=== PATIENT | female | born 1965 | race Two or more races ===

== ENCOUNTER 2018-08-09 19:41 | Emergency (ER) | payer MEDICAID, OTHER ==
[~2018-08-09] VITALS: Ht 157.5 cm; Wt 81.6 kg
[~2018-08-09 19:41] MED LIST: ALBU18 IN; AMIT PO; BUTA-91 OR; CETI1TAB36 PO; CIPR-173 PO; GABA-339; GABA-339 PO; HYDR-4683 PO; MELO-41 PO; METH-562 PO; NOR10T PO; OMEP20CA74 OR; PANT1INJ3 PO; TRAM50TA2 PO; ZOLP-158 PO
[2018-08-09 19:45] VITALS: BP 145/63
== END 2018-08-09 23:00 | disposition left against medical advice (07) ==
LOC: EDBD 19:41 → ER 19:47
DX: R51 Headache (principal); Z53.21 Procedure and treatment not carried out due to patient leaving prior to being seen by health care provider
CPT/HCPCS: 70450

== ENCOUNTER 2022-05-17 19:26 | Inpatient (IN) | payer OTHER ==
[~2022-05-17] VITALS: Ht 154.9 cm; Wt 75.8 kg
[~2022-05-17 19:26] MED LIST changes: -AMIT PO; +AMIT10TA8 PO; -GABA-339; -HYDR-4683 PO; +HYDR-4833 PO; -MELO-41 PO; +MELO7.5T9 PO; -ZOLP-158 PO; +ZOLP5TAB PO
[2022-05-17 20:38] LABS: Basophils # (auto) 0 10 ^3/uL (0-0.2); Basophils % (auto) 0.5 % (0.0-2.0); Eosinophils # (auto) 0.1 10 ^3/uL (0-0.8); Eosinophils % (auto) 1.1 % (0.0-7.0); Hematocrit 42.2 % (36.0-46.0); Hemoglobin 14.3 g/dL (12.2-16.2); Lymphocytes # (auto) 3.4 10 ^3/uL (0.4-5.4); Lymphocytes % (auto) 35.6 % (10.0-50.0); Mean Corpuscular Volume 85.2 fL (80.0-100.0); Monocytes % (auto) 10.3 % (0.0-12.0); Neutrophils # (auto) 5.1 10 ^3/uL (1.6-8.6); Neutrophils % (auto) 52.5 % (37.0-80.0); Red Blood Cells 4.95 10^6/uL (4.0-5.20); Red Cell Distribution Width 14.4 % (11.8-14.3); White Blood Cell 9.6 10^3/uL (4.4-10.8)
[2022-05-17 20:56] LABS: Albumin 3.8 g/dL (3.4-5.0)
[2022-05-17 20:59] LABS: BUN/Creatinine Ratio 15.7; Bilirubin, Total 0.2 mg/dL (0.2-1.0)
[2022-05-18] MEDS ORDERED: DEXTROSE (50%) 50ML SYRG IV PRN (04:15)
[2022-05-18] MEDS ORDERED: MORPHINE SULFATE INJ 2 MG/ml SYRG IV PRN (04:15)
[2022-05-18] MEDS ORDERED: ONDANSETRON HCL 4 MG/2 ML VIAL IV PRN (04:15)
[2022-05-18] MEDS ORDERED: NITROGLYCERIN 0.4 MG SL TAB SL PRN (04:15)
[2022-05-18] MEDS: InsuLIN REG 1unit/0.01ml Soln (100units/ml) SC SCH ×4 (06:38→22:07)
[2022-05-18] MEDS: ACCU-CHEK COMFORT CURVE STRIP VI SCH ×4 (06:38→22:09)
[2022-05-18] MEDS: LEVOTHYROXINE SODIUM 100 MCG TAB PO SCH (06:46)
[2022-05-18] MEDS: busPIRone HCL 10 MG TAB PO SCH ×2 (09:26→22:11)
[2022-05-18] MEDS: GABAPENTIN 300 MG CAP PO SCH ×2 (09:26→22:11)
[2022-05-18] MEDS: PANTOPRAZOLE 40 MG TAB PO SCH (09:26)
[2022-05-18] MEDS: FLUoxetine HCL 20 MG CAP PO SCH (09:26)
[2022-05-18] MEDS: ENOXAPARIN SOD 40 MG/0.4 ML SYRINGE SC SCH (09:27)
[2022-05-18] MEDS: METOPROLOL TARTRATE 25 MG TAB PO SCH ×2 (09:27→22:11)
[2022-05-18] MEDS: MEMANTINE HCL 5 MG TAB PO SCH ×2 (09:27→22:10)
[2022-05-18] MEDS: ASPirin 81 mg TAB PO SCH (09:31)
[2022-05-18 10:04] LABS: Urine Bacteria FEW /hpf (None Seen); Urine Blood Negative /uL (Negative); Urine Specific Gravity 1.016 (1.001-1.035); Urine WBC 5 /hpf (0 - 5)
[2022-05-18] MEDS ORDERED: AMIT1TAB41 PO (19:55)
[2022-05-18] MEDS ORDERED: CYCL-611 PO (19:55)
[2022-05-18] MEDS ORDERED: FLUO20CA90 PO (19:55)
[2022-05-18] MEDS ORDERED: METF-869 PO (19:55)
[2022-05-18] MEDS ORDERED: OMEP20TA69 PO (19:55)
[2022-05-18] MEDS ORDERED: BUSP10TA90 PO (19:55)
[2022-05-18] MEDS ORDERED: MEMA1TAB5 PO (19:55)
[2022-05-18] MEDS ORDERED: ATOR20TA50 PO (19:55)
[2022-05-18] MEDS ORDERED: ARIP1TAB PO (19:55)
[2022-05-18] MEDS ORDERED: LEVO100T8 PO (20:04)
[2022-05-18] MEDS ORDERED: TOPI100T68 PO (20:04)
[2022-05-18 21:30] VITALS: BP 109/66
[2022-05-18] MEDS: ATORVASTATIN 20 MG TAB PO SCH (22:12)
[2022-05-19 04:32] VITALS: BP 109/64
[2022-05-19 05:27] LABS: Basophils # (auto) 0 10 ^3/uL (0-0.2); Basophils % (auto) 0.5 % (0.0-2.0); Eosinophils # (auto) 0.1 10 ^3/uL (0-0.8); Eosinophils % (auto) 1.7 % (0.0-7.0); Hematocrit 37.8 % (36.0-46.0); Hemoglobin 13.2 g/dL (12.2-16.2); Lymphocytes # (auto) 3.3 10 ^3/uL (0.4-5.4); Lymphocytes % (auto) 41.7 % (10.0-50.0); Mean Corpuscular Hemoglobin 29.8 pg (28.0-32.0); Mean Corpuscular Hgb Conc. 34.8 g/dL (32.0-36.0); Mean Corpuscular Volume 85.8 fL (80.0-100.0); Monocytes # (auto) 0.9 10 ^3/uL (0-1.3); Monocytes % (auto) 11.4 % (0.0-12.0); Neutrophils # (auto) 3.5 10 ^3/uL (1.6-8.6); Neutrophils % (auto) 44.7 % (37.0-80.0); Red Blood Cells 4.41 10^6/uL (4.0-5.20); Red Cell Distribution Width 14.4 % (11.8-14.3); White Blood Cell 7.9 10^3/uL (4.4-10.8)
[2022-05-19 05:40] LABS: BUN/Creatinine Ratio 24.2; Calcium 8.5 mg/dL (8.5-10.1)
[2022-05-19] MEDS: ACCU-CHEK COMFORT CURVE STRIP VI SCH ×4 (06:25→22:00)
[2022-05-19] MEDS: InsuLIN REG 1unit/0.01ml Soln (100units/ml) SC SCH ×4 (06:25→22:00)
[2022-05-19] MEDS: LEVOTHYROXINE SODIUM 100 MCG TAB PO SCH (06:25)
[2022-05-19 08:37] VITALS: BP 111/67
[2022-05-19] MEDS: ASPirin 81 mg TAB PO SCH (09:35)
[2022-05-19] MEDS: FLUoxetine HCL 20 MG CAP PO SCH (09:38)
[2022-05-19] MEDS: PANTOPRAZOLE 40 MG TAB PO SCH (09:38)
[2022-05-19] MEDS: MEMANTINE HCL 5 MG TAB PO SCH ×2 (09:38→22:36)
[2022-05-19] MEDS: GABAPENTIN 300 MG CAP PO SCH ×2 (09:39→22:37)
[2022-05-19] MEDS: busPIRone HCL 10 MG TAB PO SCH ×2 (09:39→22:37)
[2022-05-19] MEDS: METOPROLOL TARTRATE 25 MG TAB PO SCH ×2 (09:39→22:42)
[2022-05-19] MEDS: ENOXAPARIN SOD 40 MG/0.4 ML SYRINGE SC SCH (09:39)
[2022-05-19 12:36] VITALS: BP 110/62
[2022-05-19 12:59] VITALS: BP 110/62
[2022-05-19 17:28] VITALS: BP 123/72
[2022-05-19] MEDS: ATORVASTATIN 20 MG TAB PO SCH (22:37)
[2022-05-19 22:47] LABS: Prolactin 3.04 ng/mL (2.8-29.2)
[2022-05-19 22:49] LABS: Follicle Stimulating Hormone 43.14 IU/L (SEE BELOW)
[2022-05-19] MEDS: ACETAMINOPHEN 325 MG TAB PO PRN (22:49)
[2022-05-20 05:09] VITALS: BP 114/60
[2022-05-20] MEDS: ACCU-CHEK COMFORT CURVE STRIP VI SCH ×4 (06:30→21:20)
[2022-05-20] MEDS: InsuLIN REG 1unit/0.01ml Soln (100units/ml) SC SCH ×4 (06:30→21:20)
[2022-05-20] MEDS: LEVOTHYROXINE SODIUM 100 MCG TAB PO SCH (06:31)
[2022-05-20] MEDS ORDERED: ADENOSINE 57 MG in GIVE UN-DILUTED 0 ML IV ONE (08:15)
[2022-05-20 09:37] VITALS: BP 104/54
[2022-05-20] MEDS: METOPROLOL TARTRATE 25 MG TAB PO SCH ×2 (10:00→21:12)
[2022-05-20] MEDS: MEMANTINE HCL 5 MG TAB PO SCH ×2 (10:00→21:13)
[2022-05-20] MEDS: ASPirin 81 mg TAB PO SCH (10:00)
[2022-05-20] MEDS: PANTOPRAZOLE 40 MG TAB PO SCH (11:11)
[2022-05-20] MEDS: GABAPENTIN 300 MG CAP PO SCH ×2 (11:11→21:12)
[2022-05-20] MEDS: FLUoxetine HCL 20 MG CAP PO SCH (11:12)
[2022-05-20] MEDS: ENOXAPARIN SOD 40 MG/0.4 ML SYRINGE SC SCH (11:12)
[2022-05-20] MEDS: busPIRone HCL 10 MG TAB PO SCH ×2 (11:14→21:13)
[2022-05-20] MEDS: ACETAMINOPHEN 325 MG TAB PO PRN ×2 (11:59→18:23)
[2022-05-20 16:35] VITALS: BP 107/62
[2022-05-20] MEDS: ATORVASTATIN 20 MG TAB PO SCH (21:11)
[2022-05-20 22:00] VITALS: BP 115/63
[2022-05-21 05:00] VITALS: BP 109/68
[2022-05-21] MEDS: LEVOTHYROXINE SODIUM 100 MCG TAB PO SCH (06:16)
[2022-05-21] MEDS: InsuLIN REG 1unit/0.01ml Soln (100units/ml) SC SCH ×4 (06:16→21:53)
[2022-05-21] MEDS: ACCU-CHEK COMFORT CURVE STRIP VI SCH ×4 (06:17→21:53)
[2022-05-21 08:00] VITALS: BP 108/59
[2022-05-21] MEDS: GABAPENTIN 300 MG CAP PO SCH ×2 (09:10→21:52)
[2022-05-21] MEDS: MEMANTINE HCL 5 MG TAB PO SCH ×2 (09:11→21:52)
[2022-05-21] MEDS: ASPirin 81 mg TAB PO SCH (09:11)
[2022-05-21] MEDS: FLUoxetine HCL 20 MG CAP PO SCH (09:12)
[2022-05-21] MEDS: ENOXAPARIN SOD 40 MG/0.4 ML SYRINGE SC SCH (09:13)
[2022-05-21] MEDS: busPIRone HCL 10 MG TAB PO SCH ×2 (09:13→21:52)
[2022-05-21] MEDS: METOPROLOL TARTRATE 25 MG TAB PO SCH ×2 (09:13→21:52)
[2022-05-21] MEDS: PANTOPRAZOLE 40 MG TAB PO SCH (09:13)
[2022-05-21 12:00] VITALS: BP 109/68
[2022-05-21 16:00] VITALS: BP 104/68
[2022-05-21] MEDS: ATORVASTATIN 20 MG TAB PO SCH (21:52)
[2022-05-21 22:00] VITALS: BP 119/66
[2022-05-22 05:00] VITALS: BP 108/56
[2022-05-22] MEDS: LEVOTHYROXINE SODIUM 100 MCG TAB PO SCH (06:37)
[2022-05-22] MEDS: ACCU-CHEK COMFORT CURVE STRIP VI SCH ×2 (06:38→11:46)
[2022-05-22] MEDS: InsuLIN REG 1unit/0.01ml Soln (100units/ml) SC SCH ×2 (06:40→11:30)
[2022-05-22 09:00] VITALS: BP 109/57
[2022-05-22] MEDS: MEMANTINE HCL 5 MG TAB PO SCH (09:46)
[2022-05-22] MEDS: FLUoxetine HCL 20 MG CAP PO SCH (09:46)
[2022-05-22] MEDS: busPIRone HCL 10 MG TAB PO SCH (09:47)
[2022-05-22] MEDS: GABAPENTIN 300 MG CAP PO SCH (09:47)
[2022-05-22] MEDS: METOPROLOL TARTRATE 25 MG TAB PO SCH (09:47)
[2022-05-22] MEDS: ASPirin 81 mg TAB PO SCH (09:47)
[2022-05-22] MEDS: PANTOPRAZOLE 40 MG TAB PO SCH (09:47)
[2022-05-22] MEDS: ENOXAPARIN SOD 40 MG/0.4 ML SYRINGE SC SCH (09:48)
[2022-05-22 12:52] VITALS: BP 120/51
== END 2022-05-22 12:50 | disposition home or self-care (01) | DRG 47 ==
LOC: ER 19:26 → TELE 05-18 04:11 → TELE-WESTW 05-18 18:43
PROVIDERS: ADMIT Nurse Practitioner; ATTEND Family Medicine
DX: G45.9 Transient cerebral ischemic attack, unspecified (principal); E11.9 Type 2 diabetes mellitus without complications; F41.9 Anxiety disorder, unspecified; Z20.822 Contact with and (suspected) exposure to COVID-19; R07.89 Other chest pain; F41.1 Generalized anxiety disorder; I10 Essential (primary) hypertension; F32.A Depression, unspecified; J45.909 Unspecified asthma, uncomplicated; Z80.1 Family history of malignant neoplasm of trachea, bronchus and lung
CPT/HCPCS: 36415; 70450; 70551; 71045; 78452; 80048; 80053; 81001; 82533; 82672; 82962; 83001; 83880; 84146; 84484; 85025; 87426; 93005; 93017; 93306; 96372; G0378; J0153; J1815

== ENCOUNTER 2024-06-09 12:41 | Emergency (ER) | payer OTHER ==
[~2024-06-09] VITALS: Ht 152.4 cm; Wt 76.5 kg
[~2024-06-09 12:41] MED LIST changes: +AMIT-400 PO; +AMIT100T6 PO; -AMIT10TA8 PO; +ARIP20TA49 PO; +ATOR20TA50 PO; +BUSP10TA90 PO; +CYCL-611 PO; +FLUO-470 PO; +LEVO100T8 PO; +MEMA1TAB5 PO; +METF-869 PO; +OMEP20TA69 PO; +TOPI100T68 PO
--- NOTE | 2024-06-09 13:08 | ED.PDOC ---
History of Present Illness HPI Comments 59Y F with PMHx DM, HTN, HLD, thyroid disease, arthritis, anxiety, headaches and depression presents to ED for chief complaint headache [id number]. Pt states that headaches occur every 15-30days and are intermittent. Additional symptoms include nausea and neck and shoulder pain. Pt currently takes [place] for pain but only feels relief for a limited amount of time. No known drug allergies. neck and shoulder pain is better with massage Chief Complaint: Headache Time Seen by MD: 12:50 Primary Care Provider: UNK Reviewed Notes: Medications, Allergies Allergies: Coded Allergies: No Known Drug Allergy (Verified Allergy, Unknown, 03/31/17) Uncoded Allergies: NUTS (Adverse Reaction, Severe, 06/17/14) Home Meds Active Scripts Ciprofloxacin Hcl (Cipro) 500 Mg Tab, 500 MG PO BID for 5 Days Prov:ANGELITO TEJADA MD 04/03/17 Reported Medications Topiramate (Topiramate) 100 Mg Tab, 1 TAB PO HS 05/18/22 Levothyroxine Sodium (Levothyroxine Sodium) 100 Mcg Tab, 1 TAB PO QAM 05/18/22 Amitriptyline Hcl (Amitriptyline Hcl) 100 Mg Tab, 1 TAB PO DAILY 05/18/22 Aripiprazole (Aripiprazole) 20 Mg Tab, 1 TAB PO DAILY 05/18/22 Memantine Hydrochloride (Memantine HCl) 10 Mg Tab, 1 TAB PO BID 05/18/22 Omeprazole (Gnp Omeprazole) 20 Mg Tab, 40 MG PO DAILY 05/18/22 Atorvastatin Calcium (ATORVASTATIN CALCIUM) 20 Mg Tab, 1 TAB PO DAILY 05/18/22 Metformin Hydrochloride (Metformin Hydrochloride) 500 Mg Tab, 1 TAB PO BID 05/18/22 Fluoxetine HCl (Fluoxetine HCl) 20 Mg Cap, 1 CAP PO QAM 05/18/22 Buspirone Hcl (Buspirone Hcl) 10 Mg Tab, 2 TAB PO TID 05/18/22 Cyclobenzaprine HCl (Cyclobenzaprine Hydrochlo) 10 Mg Tab, 1 TAB PO BID 05/18/22 Albuterol Sulfate (Ventolin Hfa) Aer, 1 PUFF IN QIDP, AER 10/23/13 Cetirizine Hcl (ZYRTEC ALLERGY) 10 Mg Tab, 10 MG PO DAILY, TAB 10/23/13 Omeprazole (PRILOSEC) 20 Mg Cap, 20 MG OR DAILY, CAP 10/23/13 Zolpidem Tartrate (Ambien) 5 Mg Tab, 5 MG PO HSPRN PRN, TAB 10/23/13 Meloxicam (Mobic) 7.5 Mg Tab, 7.5 MG PO DAILY, TAB 10/23/13 Hydrocodone-Acetaminophen ([place] 10/325MG) 1 Tab Tb, 1 TAB PO Q6HPRN 10/23/13 Gabapentin (Gabapentin) 600 Mg Tab, 600 MG PO TID, TAB 10/23/13 Tramadol Hcl (Tramadol Hcl) 50 Mg Tab, 50 MG PO TID PRN for MODERATE PAIN, TAB 10/23/13 Methocarbamol (Robaxin) 500 Mg Tab, 500 MG PO TIDP PRN for FOR MUSCLE SPASM, TAB 10/23/13 Tryjgvrdhl-Lqesswtlspati-Bbwiv (Fioricet) Tab, 1 TAB OR DAILYPRN PRN for FOR HEADACHE, TAB 10/23/13 Amitriptyline Hcl (ELAVIL) 10 Mg Tb, 25 MG PO HS 10/23/13 Pantoprazole Sodium (PANTOPRAZOLE SODIUM) 40 Mg Inj, 20 MG PO BID, INJ 10/23/13 Hydrocodone-Acetaminophen ([place] 5/325MG) 1 Tab Tb, PO PRN 07/08/12 Gabapentin (Gabapentin) 600 Mg Tab, 300 MG PO BID 11/24/11 Information Source: Patient Mode of Arrival: Ambulatory Severity: Mild Timing: Months Duration: Intermittent Past Medical History PAST MEDICAL HISTORY: Anxiety, Arthritis, Asthma, Depression, DM, GERD, High Lipids, HTN, Thyroid Surgical History: Cholecystectomy, Thyroidectomy 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 CYANIDE CASE HARDENER History Family History Family History: No family hx of Cancer, No family hx of DM Social History Smoker: Non-Smoker Alcohol: Denies ETOH Use Drugs: Denies Drug Use Lives In: Home Constitutional: denies: chills, diaphoresis, fatigue, fever, malaise, sweats, weakness, others EENTM: denies: blurred vision, double vision, ear bleeding, ear discharge, ear drainage, ear pain, ear ringing, eye pain, eye redness, hearing loss, mouth pain, mouth swelling, nasal discharge, nose bleeding, nose congestion, nose pain, photophobia, tearing, throat pain, throat swelling, voice changes, others Respiratory: denies: cough, hemoptysis, orthopnea, SOB at rest, shortness of breath, SOB with excertion, stridor, wheezing, others Cardiovascular: denies: chest pain, dizzy spells, diaphoresis, Dyspnea on exertion, edema, irregular heart beat, left arm pain, lightheadedness, palpitations, PND, syncope, others Gastrointestinal: reports: nausea; denies: abdomen distended, abdominal pain, blood streaked bowels, constipated, diarrhea, dysphagia, difficulty swallowing, hematemesis, melena, poor appetite, poor fluid intake, rectal bleeding, rectal pain, vomiting, others Genitourinary: denies: abnormal vagina bleeding, burning, dyspareunia, dysuria, flank pain, frequency, hematuria, incontinence, pain, , vagina discharge, urgency, others Neurological: reports: headache; denies: dizziness, fainting, left sided numbness, left sided weakness, numbness, paresthesia, pre-existing deficit, right sided numbness, right sided weakness, seizure, speech problems, tingling, tremors, weakness, others Musculoskeletal: reports: neck pain; denies: back pain, gout, joint pain, joint swelling, muscle pain, muscle stiffness, others Integumetry: denies: bruises, change in color, change in hair/nails, dryness, laceration, lesions, lumps, rash, wounds, others Allergic/Immunocompromised: denies: Difficulty Healing, Frequent Infections, Hives, Itching, others Hematologic/Lymphatic: denies: anemia, blood clots, easy bleeding, easy bruising, swollen glands, others Endocrine: denies: excessive hunger, excessive sweating, excessive thirst, excessive urination, flushing, intolerance to cold, intolerance to heat, unexplained weight gain, unexplained weight loss, others Psychiatric: denies: anxiety, bipolar disorder, depression, hopeless, panic disorder, schizophrenia, sleepless, suicidal, others All Other Systems: Reviewed and Negative Physical Exam General Appearance: No Apparent Distress, Normal HEENT: Normal ENT Inspection, Pharynx Normal, TMs Normal Neck: Full Range of Motion, Non-Tender, Normal, Normal Inspection Respiratory: Chest Non-Tender, Lungs Clear, No Accessory Muscle Use, No Respiratory Distress, Normal Breath Sounds Cardiovascular: No Edema, No JVD, No Murmur, No Gallop, Normal Peripheral Pulses, Regular Rate/Rhythm Breast Exam: Deferred Gastrointestinal: No Organomegaly, Non Tender, No Pulsatile Mass, Normal Bowel Sounds, Soft Genitalia: Deferred Pelvic: Deferred Rectal: Deferred Extremities: No calf tenderness, Normal capillary refill, Normal inspection, Normal range of motion, Non-tender, No pedal edema Musculoskeletal : Location: Bilateral Extremity Location: Other (trapezius ) Apperance: Normal, Tenderness Neurologic: Alert, 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 Was a procedure done?: No Differential Dx Considerations may include: migraines, tension headache, cluster headache, carbon monoxide exposure, intracranial bleed, mass, meningitis, temporal arteritis, TMJ, glaucoma, dental pain, otalgia X-Ray, Labs, Meds, VS Vital Signs Date Time Temp Pulse Resp B/P (MAP) Pulse Ox O2 Delivery O2 Flow Rate FiO2 06/09/24 15:34 78 16 98 Room Air* 0 21 06/09/24 15:34 98.5 79 16 145/68 (93) 99 98.5 06/09/24 12:48 97.8 94 18 127/93 (104) 98 Lab Test 06/09/24 12:53 Range/Units POC Glucose 110 H 70-106 mg/dl Current Medications Medications (Trade) Dose Ordered Sig/Dajlit Route Start Time Stop Time Status Last Admin Ketorolac Tromethamine (Toradol Injection) 60 mg ONCE ONCE IM 06/09/24 15:45 06/09/24 15:46 DC 06/09/24 15:55 Acetaminophen/ Hydrocodone Bitart ([place] 5/325MG Tab) 1 tab ONCE ONCE PO 06/09/24 15:45 06/09/24 15:46 DC 06/09/24 15:55 Time of 1ST Reevaluation: 13:20 Reevaluation 1ST: Unchanged Time of 2ND Reevaluation: 16:20 Reevaluation 2ND: Improved Patient Education/Counseling: Diagnosis, Treatment, Prognosis, Need For Follow Up Family Education/Counseling: Diagnosis, Treatment, Prognosis, Need For Follow Up, No Family Present Additional Information pt reportedly has a longstanding history of headaches, with intermittent exa cerbations. her headache is of the same pattern and intensity, without meningismus, or neurologic deficits. no one in her household has the same headache, making CO poisoning unlikely. she does not have temporal cords nor visual complaints. her headache is controlled. i will prescribe her pain control and she is stable to follow up with her doctor Departure 1 Departure Time of Disposition: 16:23 Impression: Primary Impression: Episodic headache Qualified Codes: R51.9 - Headache, unspecified Additional Impression: Trapezius muscle spasm Disposition: HOME / SELF CARE / HOMELESS Condition: Good e-Prescriptions Ibuprofen Micronized (MOTRIN TABLET) 600 Mg Tb 600 MG PO TID PRN, #40 TAB *Black box warning-NSAIDS can increase risk of AR & hypertension, GI irritation, ulceration, bleed, perferation. Do not use post cardiac surgery. Use short duration/lowest effective dose. Prov: SAMANTHA SORENSEN MD 06/09/24 Cyclobenzaprine HCl (Cyclobenzaprine Hydrochlo) 15 Mg Cap 15 MG PO Q8HPRN PRN for 5 Days, #15 CAP Prov: SAMANTHA SORENSEN MD 06/09/24 Discharged With: Self, Relative Critical Care Note Critical Care Time?: No Stability Stability form required: No I personally scribed for SAMANTHA SORENSEN MD ([email or web address]) on 06/09/24 at 13:08. Electronically submitted by Stephenie Green ([email or web address]). SAMANTHA SORENSEN MD Jun 09, 2024 13:08
[2024-06-09 15:34] VITALS: BP 145/68; PULSE 78; RESP 16; TEMP 98.5; O2SAT 98
[2024-06-09] MEDS: KETOROLAC TROMETH 60MG/2ML VIAL IM ONE (15:55)
[2024-06-09] MEDS: HYDROcodone-ACET 5/325MG TAB PO ONE (15:55)
[2024-06-09] MEDS ORDERED: CYCL15CA27 PO (16:29)
[2024-06-09] MEDS ORDERED: IBU600T PO (16:29)
== END 2024-06-09 16:46 | disposition home or self-care (01) ==
LOC: ER 12:41
DX: R51.9 Headache, unspecified (principal); M62.830 Muscle spasm of back; J45.909 Unspecified asthma, uncomplicated; E11.9 Type 2 diabetes mellitus without complications; K21.9 Gastro-esophageal reflux disease without esophagitis; E78.5 Hyperlipidemia, unspecified; Z88.8 Allergy status to other drugs, medicaments and biological substances; Z79.899 Other long term (current) drug therapy; Z90.49 Acquired absence of other specified parts of digestive tract; Z98.890 Other specified postprocedural states
CPT/HCPCS: 82962; 96372; 99283; J1885

== ENCOUNTER 2025-04-26 11:56 | Emergency (ER) | payer OTHER ==
[~2025-04-26] VITALS: Ht 170.2 cm; Wt 82.0 kg
[~2025-04-26 11:56] MED LIST changes: +CYCL15CA27 PO; +IBU600T PO
--- NOTE | 2025-04-26 13:07 | DVH ---
CLINICAL INDICATION: PAIN, NO INJURY TECHNIQUE: 3 radiographic views of the right ankle were obtained. Comparison: None FINDINGS/IMPRESSION: There is no evidence of acute fracture or dislocation. Mild degenerative changes of the ankle. Small posterior and plantar calcaneal bony spur. The alignment is anatomical. There is no radiopaque foreign body.
[2025-04-26 13:40] VITALS: BP 130/71; PULSE 67; RESP 18; TEMP 98.5; O2SAT 97
[2025-04-26] MEDS ORDERED: MELO7.5T7 PO (13:40)
--- NOTE | 2025-04-26 13:46 | ED.PDOC ---
Musculoskeletal HPI Comments A 59 YEAR OLD FEMALE PRESENTS TO THE ED WITH COMPLAINT OF RIGHT ANKLE PAIN . PATIENT STATES SHE HAD SLIP AND MECHANICAL FALL 2 DAYS PRIOR. PATIENT STATES SHE FELL ON RIGHT ANKLE AND HAS SINCE BEEN HAVING ASSOCIATED PAIN AND SWELLING. PATIENT DENIES FEVER, CHILLS, SHORTNESS OF BREATH, CHEST PAIN, ABDOMINAL PAIN, NAUSEA, VOMITING, HEADACHE, OR OTHER COMPLAINTS. NO OTHER SYMPTOMS OR MODIFYING FACTORS AT THIS TIME. PATIENT IS ALERT, ORIENTED X 4, AND HAS STEADY GAIT. Chief Complaint: Lower Extremity Time Seen by MD: 13:44 Primary Care Provider: UNK Reviewed Notes: Nurses Notes, Medications, Allergies Allergies: Coded Allergies: No Known Drug Allergy (Verified Allergy, Unknown, 03/31/17) Uncoded Allergies: NUTS (Adverse Reaction, Severe, 06/17/14) Home Meds Active Scripts Meloxicam (Meloxicam) 7.5 Mg Tab, 1 TAB PO BID, #30 TAB Prov:HALIMA MAY 04/26/25 Ibuprofen Micronized (MOTRIN TABLET) 600 Mg Tb, 600 MG PO TID PRN, #40 TAB *Black box warning-NSAIDS can increase risk of NV & hypertension, GI irritation, ulceration, bleed, perferation. Do not use post cardiac surgery. Use short duration/lowest effective dose. Prov:SAMANTHA SORENSEN MD 06/09/24 Cyclobenzaprine HCl (Cyclobenzaprine Hydrochlo) 15 Mg Cap, 15 MG PO Q8HPRN PRN for 5 Days, #15 CAP Prov:SAMANTHA SORENSEN MD 06/09/24 Ciprofloxacin Hcl (Cipro) 500 Mg Tab, 500 MG PO BID for 5 Days Prov:ANGELITO TEJADA MD 04/03/17 Reported Medications Topiramate (Topiramate) 100 Mg Tab, 1 TAB PO HS 05/18/22 Levothyroxine Sodium (Levothyroxine Sodium) 100 Mcg Tab, 1 TAB PO QAM 05/18/22 Amitriptyline Hcl (Amitriptyline Hcl) 100 Mg Tab, 1 TAB PO DAILY 05/18/22 Aripiprazole (Aripiprazole) 20 Mg Tab, 1 TAB PO DAILY 05/18/22 Memantine Hydrochloride (Memantine HCl) 10 Mg Tab, 1 TAB PO BID 05/18/22 Omeprazole (Gnp Omeprazole) 20 Mg Tab, 40 MG PO DAILY 05/18/22 Atorvastatin Calcium (ATORVASTATIN CALCIUM) 20 Mg Tab, 1 TAB PO DAILY 05/18/22 Metformin Hydrochloride (Metformin Hydrochloride) 500 Mg Tab, 1 TAB PO BID 05/18/22 Fluoxetine HCl (Fluoxetine HCl) 20 Mg Cap, 1 CAP PO QAM 05/18/22 Buspirone Hcl (Buspirone Hcl) 10 Mg Tab, 2 TAB PO TID 05/18/22 Cyclobenzaprine HCl (Cyclobenzaprine Hydrochlo) 10 Mg Tab, 1 TAB PO BID 05/18/22 Albuterol Sulfate (Ventolin Hfa) Aer, 1 PUFF IN QIDP, AER 10/23/13 Cetirizine Hcl (ZYRTEC ALLERGY) 10 Mg Tab, 10 MG PO DAILY, TAB 10/23/13 Omeprazole (PRILOSEC) 20 Mg Cap, 20 MG OR DAILY, CAP 10/23/13 Zolpidem Tartrate (Ambien) 5 Mg Tab, 5 MG PO HSPRN PRN, TAB 10/23/13 Meloxicam (Mobic) 7.5 Mg Tab, 7.5 MG PO DAILY, TAB 10/23/13 Hydrocodone-Acetaminophen ([place] 10/325MG) 1 Tab Tb, 1 TAB PO Q6HPRN 10/23/13 Gabapentin (Gabapentin) 600 Mg Tab, 600 MG PO TID, TAB 10/23/13 Tramadol Hcl (Tramadol Hcl) 50 Mg Tab, 50 MG PO TID PRN for MODERATE PAIN, TAB 10/23/13 Methocarbamol (Robaxin) 500 Mg Tab, 500 MG PO TIDP PRN for FOR MUSCLE SPASM, TAB 10/23/13 Mcipoehzgb-Uynxktwysglgv-Jctrd (Fioricet) Tab, 1 TAB OR DAILYPRN PRN for FOR HEADACHE, TAB 10/23/13 Amitriptyline Hcl (ELAVIL) 10 Mg Tb, 25 MG PO HS 10/23/13 Pantoprazole Sodium (PANTOPRAZOLE SODIUM) 40 Mg Inj, 20 MG PO BID, INJ 10/23/13 Hydrocodone-Acetaminophen ([place] 5/325MG) 1 Tab Tb, PO PRN 07/08/12 Gabapentin (Gabapentin) 600 Mg Tab, 300 MG PO BID 11/24/11 Information Source: Patient Mode of Arrival: Ambulatory Location: Right Extremity Location: Ankle Timing: Days Severity: Mild, Moderate Able to Move Extremity: Yes Bear Weight: Fully Pain: Moderate Hand Dominance: Right Circumstances: Arthritis Onset of Symptoms: Spontaneous Symptoms: Swelling, Pain DVT Risk Factors: NONE Last Tetanus: UTD Associated signs and symptoms: Ankle pain Past Medical History PAST MEDICAL HISTORY: Anxiety, Arthritis, Asthma, Depression, DM, GERD, High Lipids, HTN, Thyroid Surgical History: Cholecystectomy, Thyroidectomy BURIAL AGENT History: No Pertinent BURIAL AGENT History Family History Family History: No family hx of Cancer, No family hx of DM Social History Smoker: Non-Smoker Alcohol: Denies ETOH Use Drugs: Denies Drug Use Lives In: Home Constitutional: denies: chills, diaphoresis, fatigue, fever, malaise, sweats, weakness, others EENTM: denies: blurred vision, double vision, ear bleeding, ear discharge, ear drainage, ear pain, ear ringing, eye pain, eye redness, hearing loss, mouth pain, mouth swelling, nasal discharge, nose bleeding, nose congestion, nose pain, photophobia, tearing, throat pain, throat swelling, voice changes, others Respiratory: denies: cough, hemoptysis, orthopnea, SOB at rest, shortness of breath, SOB with excertion, stridor, wheezing, others Cardiovascular: denies: chest pain, dizzy spells, diaphoresis, Dyspnea on exertion, edema, irregular heart beat, left arm pain, lightheadedness, palpitations, PND, syncope, others Gastrointestinal: denies: abdomen distended, abdominal pain, blood streaked bowels, constipated, diarrhea, dysphagia, difficulty swallowing, hematemesis, melena, nausea, poor appetite, poor fluid intake, rectal bleeding, rectal pain, vomiting, others Genitourinary: denies: abnormal vagina bleeding, burning, dyspareunia, dysuria, flank pain, frequency, hematuria, incontinence, pain, , vagina discharge, urgency, others Neurological: denies: dizziness, fainting, headache, left sided numbness, left sided weakness, numbness, paresthesia, pre-existing deficit, right sided numbness, right sided weakness, seizure, speech problems, tingling, tremors, weakness, others Musculoskeletal: reports: joint pain (RIGHT ANKLE), joint swelling (RIGHT ANKLE); denies: back pain, gout, muscle pain, muscle stiffness, neck pain, others Integumetry: denies: bruises, change in color, change in hair/nails, dryness, laceration, lesions, lumps, rash, wounds, others Allergic/Immunocompromised: denies: Difficulty Healing, Frequent Infections, Hives, Itching, others Hematologic/Lymphatic: denies: anemia, blood clots, easy bleeding, easy bruising, swollen glands, others Endocrine: denies: excessive hunger, excessive sweating, excessive thirst, excessive urination, flushing, intolerance to cold, intolerance to heat, unexplained weight gain, unexplained weight loss, others Psychiatric: denies: anxiety, bipolar disorder, depression, hopeless, panic disorder, schizophrenia, sleepless, suicidal, others All Other Systems: Reviewed and Negative Physical Exam General Appearance: No Apparent Distress, Normal HEENT: Normal ENT Inspection, PERRL/EOMI, Pharynx Normal, TMs Normal Neck: Full Range of Motion, Non-Tender, Normal, Normal Inspection Respiratory: Chest Non-Tender, Lungs Clear, No Accessory Muscle Use, No Respiratory Distress, Normal Breath Sounds Cardiovascular: No Edema, No JVD, No Murmur, No Gallop, Normal Peripheral Pulses, Regular Rate/Rhythm Breast Exam: Deferred Gastrointestinal: No Organomegaly, Non Tender, No Pulsatile Mass, Normal Bowel Sounds, Soft Genitalia: Deferred Pelvic: Deferred Rectal: Deferred Extremities: No calf tenderness, Normal capillary refill, Normal range of motion, No pedal edema, Tender (AND MILD SWELLING ON RIGHT LATERAL ANKLE, NO BONY TENDERNESS AND DEFORMITY. 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 Was a procedure done?: No Differential Diagnosis EXT Differential Diagnosis: Fracture, Sprain, Contusion, Strain, Arthritis, Bursitis Other Differential Diagnosis DJD LUMBAR RADICULOPATHY X-Ray, Labs, Meds, VS Vital Signs Date Time Temp Pulse Resp B/P (MAP) Pulse Ox O2 Delivery O2 Flow Rate FiO2 04/26/25 13:40 67 18 97 Room Air 04/26/25 13:40 98.5 67 18 130/71 (90) 97 98.5 04/26/25 11:59 98.2 71 18 124/74 97 98.2 [place] [address] Ph: [phone] DIAGNOSTIC IMAGING Diagnostic Imaging Report : [id number] Signed PATIENT: IVAN BACK ACCT: [id number] UNIT: [id number] : 1965 LOC: ER ROOM / BED: / AGE / SEX: 59 / F ADM STATUS: REG ER SERVICE 1229 ORDERING PHYSICIAN: HALIMA MAY PROCEDURE(s): RANKL - R ANKLE 3 VIEW REASON: PAIN, NO INJURY ORDER NUMBER(s): [id number], ACCESSION NUMBER(s): [id number] CLINICAL INDICATION: PAIN, NO INJURY TECHNIQUE: 3 radiographic views of the right ankle were obtained. Comparison: None FINDINGS/IMPRESSION: There is no evidence of acute fracture or dislocation. Mild degenerative changes of the ankle. Small posterior and plantar calcaneal bony spur. The alignment is anatomical. There is no radiopaque foreign body. ATED BY: LEXIS GARCÍA DO DICTATED DATE/TIME: 04/26/251304 SIGNED BY: LEXIS GARCÍA DO SIGNED DATE/TIME: 04/26/251304 CC: X-Ray, Labs, Meds, VS Comment EXTERNAL MEDICAL RECORDS REVIEWED: [NONE] INDEPENDENT HISTORIANS: [NONE] SOCIAL DETERMINANTS OF HEALTH: [NONE] LABS ORDERED: NONE REVIEWED AND INTERPRETED RESULTS: NONE IMAGING ORDERED: RIGHT ANKLE X-RAY TREATMENTS ORDERED: PROCEDURES PERFORMED: NONE CRITICAL CARE TIME: NONE I HAVE DISCUSSED THE PATIENT WITH THE ATTENDING PHYSICIAN, SHE AGREES WITH THE PATIENT'S PLAN OF CARE AND DISPOSITION. BASED ON HISTORY OF PRESENT ILLNESS, AND PHYSICAL EXAM, PATIENT WILL BE DISCHARGED HOME. DISCUSSED PLAN FOR DISCHARGE HOME WITH RX []. MEDICATION WARNINGS GIVEN. SHARED DECISION MAKING: DISCUSSED WITH PATIENT THAT THEIR WORKUP WAS NORMAL. PATIENT INSTRUCTED TO FOLLOW UP WITH PRIMARY CARE PROVIDER IN 1-2 DAYS FOR RE- EVALUATION OF SYMPTOMS. PATIENT VERBALIZES UNDERSTANDING TO RETURN TO ED FOR NEW OR WORSENING SYMPTOMS OR IF FOLLOW UP WITH PCP CANNOT BE OBTAINED. PATIENT FEELS COMFORTABLE GOING HOME AT THIS TIME. ALL QUESTIONS ADDRESSED AT TIME OF DISCHARGE. Time of 1ST Reevaluation: 13:50 Reevaluation 1ST: Improved Patient Education/Counseling: Diagnosis, Treatment, Need For Follow Up Family Education/Counseling: Diagnosis, Treatment, No Family Present Medical Screening: No EMC Exist At This Time Departure 1 Departure Time of Disposition: 13:50 Impression: Primary Impression: Degenerative joint disease of right ankle Qualified Codes: M19.071 - Primary osteoarthritis, right ankle and foot Disposition: 01 HOME / SELF CARE / HOMELESS Condition: Stable Additional Instructions: F/U PCP IN 2 DAYS RECHECK. IF CONDITION BECOME WORSE, RETURN TO ED [facility]. e-Prescriptions Meloxicam (Meloxicam) 7.5 Mg Tab 1 TAB PO BID, #30 TAB Prov: HALIMA MAY 04/26/25 Discharged With: Self Critical Care Note Critical Care Time?: No Stability Stability form required: No Heart Score Heart Score: Heart Score Response (Comments) Value History N/A 0 EKG N/A 0 Age N/A 0 Risk Factors N/A 0 Troponin N/A 0 Total 0 I personally scribed for HALIMA MAY ([email or web address]) on 04/26/25 at 13:46. Electronically submitted by Bonita Strange ([email or web address]). I personally scribed for HALIMA MAY ([email or web address]) on 04/26/25 at 13:47. Electronically submitted by Bonita Strange ([email or web address]). HALIMA MAY Apr 26, 2025 13:46
== END 2025-04-26 13:50 | disposition home or self-care (01) ==
LOC: ER 11:56
DX: M19.071 Primary osteoarthritis, right ankle and foot (principal); F41.9 Anxiety disorder, unspecified; F32.A Depression, unspecified; J45.909 Unspecified asthma, uncomplicated; I10 Essential (primary) hypertension; E11.9 Type 2 diabetes mellitus without complications; E78.5 Hyperlipidemia, unspecified; Z90.89 Acquired absence of other organs; Z79.899 Other long term (current) drug therapy; Z79.1 Long term (current) use of non-steroidal anti-inflammatories (NSAID); Z79.890 Hormone replacement therapy; Z90.49 Acquired absence of other specified parts of digestive tract
CPT/HCPCS: 73610

== ENCOUNTER 2025-08-02 18:29 | Emergency (ER) | payer OTHER ==
[~2025-08-02 18:29] MED LIST changes: +MELO7.5T7 PO
[2025-08-02 19:22] LABS: Hematocrit 42.1 % (36.0-46.0); Hemoglobin 14.5 g/dL (12.2-16.2); Mean Corpuscular Hemoglobin 30.5 pg (28.0-32.0); Mean Corpuscular Volume 88.9 fL (80.0-100.0); Nucleated Red Blood Cells % 0.0 %
[2025-08-02 19:25] LABS: Alanine Aminotransferase 35 U/L (7-40); Alkaline Phosphatase 101 U/L (46-116); Calcium 9.5 mg/dL (8.7-10.4); Carbon Dioxide 24 mmol/L (20-31); Chloride 103 mmol/L (98-107)
[2025-08-02 19:26] LABS: Albumin 4.7 g/dL (3.2-4.8); Anion Gap 12 (5-15); BUN/Creatinine Ratio 17.5 (10.0-20.0); Blood Urea Nitrogen 11 mg/dL (9-23); Potassium 4.1 mmol/L (3.5-5.1); Sodium 139 mmol/L (136-145); Total Protein 7.9 g/dL (5.7-8.2)
[2025-08-02 19:29] LABS: Bilirubin, Total 0.2 mg/dL (0.2-1.0); Glucose 138 mg/dL (74-106)
--- NOTE | 2025-08-02 19:41 | DVH ---
CHEST RADIOGRAPH INDICATION: chest pain TECHNIQUE: Single frontal view of the chest was obtained COMPARISON: CHEST PORTABLE on DOS: 05/17/22, CXRP on DOS: 05/17/22 FINDINGS: Lines and Tubes: None Lungs: No focal consolidation. Pleura: No effusion. No pneumothorax. Cardiomediastinal contours: Unremarkable Bones: No acute osseous abnormality. IMPRESSION: No acute cardiopulmonary disease.
--- NOTE | 2025-08-02 20:12 | ED.PDOC ---
HPI Comments 60-year-old female who came to ER for chest pains. Patient has history of hypertension and diabetes. Has been experiencing sharp left-sided chest pains for the past 3 days, radiating to left arm, associated with shortness of breath. Blood pressure upon arrival was 162/100 mm Hg Chief Complaint: Chest Pain Time Seen by MD: 20:12 Primary Care Provider: UNK Reviewed Notes: Nurses Notes Allergies: Coded Allergies: No Known Drug Allergy (Verified Allergy, Unknown, 03/31/17) Uncoded Allergies: NUTS (Adverse Reaction, Severe, 06/17/14) Home Meds Active Scripts Meloxicam (Meloxicam) 7.5 Mg Tab, 1 TAB PO BID, #30 TAB Prov:HALIMA MAY 04/26/25 Ibuprofen Micronized (MOTRIN TABLET) 600 Mg Tb, 600 MG PO TID PRN, #40 TAB *Black box warning-NSAIDS can increase risk of CA & hypertension, GI irritation, ulceration, bleed, perferation. Do not use post cardiac surgery. Use short duration/lowest effective dose. Prov:SAMANTHA SORENSEN MD 06/09/24 Cyclobenzaprine HCl (Cyclobenzaprine Hydrochlo) 15 Mg Cap, 15 MG PO Q8HPRN PRN for 5 Days, #15 CAP Prov:SAMANTHA SORENSEN MD 06/09/24 Ciprofloxacin Hcl (Cipro) 500 Mg Tab, 500 MG PO BID for 5 Days Prov:ANGELITO TEJADA MD 04/03/17 Reported Medications Topiramate (Topiramate) 100 Mg Tab, 1 TAB PO HS 05/18/22 Levothyroxine Sodium (Levothyroxine Sodium) 100 Mcg Tab, 1 TAB PO QAM 05/18/22 Amitriptyline Hcl (Amitriptyline Hcl) 100 Mg Tab, 1 TAB PO DAILY 05/18/22 Aripiprazole (Aripiprazole) 20 Mg Tab, 1 TAB PO DAILY 05/18/22 Memantine Hydrochloride (Memantine HCl) 10 Mg Tab, 1 TAB PO BID 05/18/22 Omeprazole (Gnp Omeprazole) 20 Mg Tab, 40 MG PO DAILY 05/18/22 Atorvastatin Calcium (ATORVASTATIN CALCIUM) 20 Mg Tab, 1 TAB PO DAILY 05/18/22 Metformin Hydrochloride (Metformin Hydrochloride) 500 Mg Tab, 1 TAB PO BID 05/18/22 Fluoxetine HCl (Fluoxetine HCl) 20 Mg Cap, 1 CAP PO QAM 05/18/22 Buspirone Hcl (Buspirone Hcl) 10 Mg Tab, 2 TAB PO TID 05/18/22 Cyclobenzaprine HCl (Cyclobenzaprine Hydrochlo) 10 Mg Tab, 1 TAB PO BID 05/18/22 Albuterol Sulfate (Ventolin Hfa) Aer, 1 PUFF IN QIDP, AER 10/23/13 Cetirizine Hcl (ZYRTEC ALLERGY) 10 Mg Tab, 10 MG PO DAILY, TAB 10/23/13 Omeprazole (PRILOSEC) 20 Mg Cap, 20 MG OR DAILY, CAP 10/23/13 Zolpidem Tartrate (Ambien) 5 Mg Tab, 5 MG PO HSPRN PRN, TAB 10/23/13 Meloxicam (Mobic) 7.5 Mg Tab, 7.5 MG PO DAILY, TAB 10/23/13 Hydrocodone-Acetaminophen ([place] 10/325MG) 1 Tab Tb, 1 TAB PO Q6HPRN 10/23/13 Gabapentin (Gabapentin) 600 Mg Tab, 600 MG PO TID, TAB 10/23/13 Tramadol Hcl (Tramadol Hcl) 50 Mg Tab, 50 MG PO TID PRN for MODERATE PAIN, TAB 10/23/13 Methocarbamol (Robaxin) 500 Mg Tab, 500 MG PO TIDP PRN for FOR MUSCLE SPASM, TAB 10/23/13 Imbrftgeps-Nybwphzrxcvhf-Iqmux (Fioricet) Tab, 1 TAB OR DAILYPRN PRN for FOR HEADACHE, TAB 10/23/13 Amitriptyline Hcl (ELAVIL) 10 Mg Tb, 25 MG PO HS 10/23/13 Pantoprazole Sodium (PANTOPRAZOLE SODIUM) 40 Mg Inj, 20 MG PO BID, INJ 10/23/13 Hydrocodone-Acetaminophen ([place] 5/325MG) 1 Tab Tb, PO PRN 07/08/12 Gabapentin (Gabapentin) 600 Mg Tab, 300 MG PO BID 11/24/11 Information Source: Patient Mode of Arrival: Ambulatory Past Medical History PAST MEDICAL HISTORY: Anxiety, Arthritis, Asthma, Depression, DM, GERD, High Lipids, HTN, Thyroid Surgical History: Cholecystectomy, Thyroidectomy ASSOCIATE QUALITY ENGINEER History: No Pertinent ASSOCIATE QUALITY ENGINEER History Family History Family History: No family hx of Cancer, No family hx of DM Social History Smoker: Non-Smoker Alcohol: Denies ETOH Use Drugs: Denies Drug Use Lives In: Home Constitutional: denies: chills, diaphoresis, fatigue, fever, malaise, sweats, weakness, others EENTM: denies: blurred vision, double vision, ear bleeding, ear discharge, ear drainage, ear pain, ear ringing, eye pain, eye redness, hearing loss, mouth pain, mouth swelling, nasal discharge, nose bleeding, nose congestion, nose pain, photophobia, tearing, throat pain, throat swelling, voice changes, others Respiratory: reports: shortness of breath; denies: cough, hemoptysis, orthopnea, SOB at rest, SOB with excertion, stridor, wheezing, others Cardiovascular: reports: chest pain, left arm pain; denies: dizzy spells, diaphoresis, Dyspnea on exertion, edema, irregular heart beat, lightheadedness, palpitations, PND, syncope, others Gastrointestinal: denies: abdomen distended, abdominal pain, blood streaked bowels, constipated, diarrhea, dysphagia, difficulty swallowing, hematemesis, melena, nausea, poor appetite, poor fluid intake, rectal bleeding, rectal pain, vomiting, others Genitourinary: denies: abnormal vagina bleeding, burning, dyspareunia, dysuria, flank pain, frequency, hematuria, incontinence, pain, , vagina discharge, urgency, others Neurological: denies: dizziness, fainting, headache, left sided numbness, left sided weakness, numbness, paresthesia, pre-existing deficit, right sided numbness, right sided weakness, seizure, speech problems, tingling, tremors, weakness, others Musculoskeletal: denies: back pain, gout, joint pain, joint swelling, muscle pain, muscle stiffness, neck pain, others Integumetry: denies: bruises, change in color, change in hair/nails, dryness, laceration, lesions, lumps, rash, wounds, others Allergic/Immunocompromised: denies: Difficulty Healing, Frequent Infections, Hives, Itching, others Hematologic/Lymphatic: denies: anemia, blood clots, easy bleeding, easy bruising, swollen glands, others Endocrine: denies: excessive hunger, excessive sweating, excessive thirst, excessive urination, flushing, intolerance to cold, intolerance to heat, unexplained weight gain, unexplained weight loss, others Psychiatric: denies: anxiety, bipolar disorder, depression, hopeless, panic disorder, schizophrenia, sleepless, suicidal, others Physical Exam General Appearance: No Apparent Distress, Normal HEENT: Normal ENT Inspection, Pharynx Normal, TMs Normal Neck: Full Range of Motion, Non-Tender, Normal, Normal Inspection Respiratory: Chest Non-Tender, Lungs Clear, No Accessory Muscle Use, No Respiratory Distress, Normal Breath Sounds Cardiovascular: No Edema, No JVD, No Murmur, No Gallop, Normal Peripheral Pulses, Regular Rate/Rhythm Breast Exam: Deferred Gastrointestinal: No Organomegaly, Non Tender, No Pulsatile Mass, Normal Bowel Sounds, Soft Genitalia: Deferred Pelvic: Deferred Rectal: Deferred Extremities: No calf tenderness, Normal capillary refill, Normal inspection, Normal range of motion, Non-tender, No pedal edema Musculoskeletal : Apperance: Normal Neurologic: Alert, principal strategist II-XII nml as Tested, No Motor Deficits, Normal Affect, Normal Mood, No Sensory Deficits Cerebellar Function: Normal Reflexes: Normal Skin: Dry, Normal Color, Warm Lymphatic: No Adenopathy EKG EKG : Pulse Rate (adult): 85 Cardiac Rhythm: NSR Was a procedure done? Was a procedure done?: No CP Differential Dx Differential Diagnosis: A-fib, A-Flutter, Angina, Other Differential Diagnosis: Angina, Chest Wall Pain, Costochondritis, Esophageal reflux/spasm, Gastritis, Myocardial Infarction X-Ray, Labs, Meds, VS Vital Signs Date Time Temp Pulse Resp B/P (MAP) Pulse Ox O2 Delivery O2 Flow Rate FiO2 08/02/25 21:32 76 16 98 Room Air 08/02/25 21:05 98.7 76 16 145/91 (109) 98 98.7 08/02/25 20:12 85 08/02/25 18:40 85 08/02/25 18:30 98.2 110 18 162/100 98 98.2 Lab Test 08/02/25 19:36 08/02/25 18:43 Range/Units Troponin I High Sensitivity < 3 L < 3 L </=34 ng/L White Blood Count 8.2 4.4-10.8 10^3/uL Red Blood Count 4.74 4.0-5.20 10^6/uL Hemoglobin 14.5 12.2-16.2 g/dL Hematocrit 42.1 36.0-46.0 % Mean Corpuscular Volume 88.9 80.0-100.0 fL Mean Corpuscular Hemoglobin 30.5 28.0-32.0 pg Mean Corpuscular Hemoglobin Concent 34.4 32.0-36.0 g/dL Red Cell Distribution Width 14.4 H 11.8-14.3 % Platelet Count 266 140-450 10^3/uL Mean Platelet Volume 8.4 6.9-10.8 fL Neutrophils (%) (Auto) 77.6 37.0-80.0 % Lymphocytes (%) (Auto) 18.9 10.0-50.0 % Monocytes (%) (Auto) 3.4 0.0-12.0 % Eosinophils (%) (Auto) 0.0 0.0-7.0 % Basophils (%) (Auto) 0.1 0.0-2.0 % Neutrophils # (Auto) 6.3 1.6-8.6 10 ^3/uL Lymphocytes # (Auto) 1.5 0.4-5.4 10 ^3/uL Monocytes # (Auto) 0.3 0-1.3 10 ^3/uL Eosinophils # (Auto) 0 0-0.8 10 ^3/uL Basophils # (Auto) 0 0-0.2 10 ^3/uL Nucleated Red Blood Cells 0.0 % Sodium Level 139 136-145 mmol/L Potassium Level 4.1 3.5-5.1 mmol/L Chloride Level 103 98-107 mmol/L Carbon Dioxide Level 24 20-31 mmol/L Anion Gap 12 5-15 Blood Urea Nitrogen 11 9-23 mg/dL Creatinine 0.63 0.550-1.02 mg/dL Glomerular Filtration Rate Calc 100 >90 mL/min BUN/Creatinine Ratio 17.5 10.0-20.0 Serum Glucose 138 H 74-106 mg/dL Calcium Level 9.5 8.7-10.4 mg/dL Total Bilirubin 0.2 0.2-1.0 mg/dL Aspartate Amino Transferase (AST) 35 13-40 U/L Alanine Aminotransferase (ALT) 35 7-40 U/L Alkaline Phosphatase 101 46-116 U/L B-Type Natriuretic Peptide 15.16 0-100 pg/mL Total Protein 7.9 5.7-8.2 g/dL Albumin 4.7 3.2-4.8 g/dL Time of 1ST Reevaluation: 20:11 Reevaluation 1ST: Unchanged Patient Education/Counseling: Diagnosis, Treatment Family Education/Counseling: No Family Present SEPSIS Sepsis Screen Date sepsis recognized/suspect: Aug 02, 2025 Time Sepsis recognized/suspect: 1833 Recent Procedure: No On Antibiotic Therapy: Yes (DUE TO INFECTION S/P UTERINE BIOPSY) Respiratory Rate >20: No Heart Rate >90: Yes Temp<36 C (96.8 F) or >38.3 C: No SBP <90 or MAP <65 mmHG: No New Acute Mental Status Change: No Is the patient on CPAP, BIPAP,: No Physician Orders Electrocardigram (08/02/25 18:44) Electrocardigram (08/02/25 19:44) Chest Portable (08/02/25 18:59) Vital Signs Date Time Temp Pulse Resp B/P (MAP) Pulse Ox O2 Delivery O2 Flow Rate FiO2 08/02/25 21:32 76 16 98 Room Air 08/02/25 21:05 98.7 76 16 145/91 (109) 98 98.7 08/02/25 20:12 85 08/02/25 18:40 85 08/02/25 18:30 98.2 110 18 162/100 98 98.2 Laboratory Tests Test 08/02/25 18:43 White Blood Count 8.2 10^3/uL (4.4-10.8) Departure 1 Departure Time of Disposition: 03:00 Impression: Primary Impression: Chest pain Disposition: 01 HOME / SELF CARE / HOMELESS Condition: Stable Discharged With: Self Critical Care Note Critical Care Time?: No Stability Stability form required: No Heart Score Heart Score: Heart Score Response (Comments) Value History Slightly Suspicious 0 EKG Normal 0 Age 45-64 1 Risk Factors 1 or 2 risk factors 1 Troponin Normal limit 0 Total 2 I personally scribed for GRIFFIN ARETAGA MD ([email or web address]) on 08/02/25 at 20:12. Electronically submitted by Elias Edwards ([email or web address]). GRIFFIN ARTEAGA MD Aug 02, 2025 20:12
[2025-08-02 21:05] VITALS: BP 145/91; TEMP 98.7
[2025-08-02 21:32] VITALS: PULSE 76; RESP 16; O2SAT 98
--- NOTE | 2025-08-04 07:39 | ECG ---
[facility] Test Date: 2025-08-02 Test Time: 18:40:55 Pat Name: IVAN BACK Department: Room: Gender: F Slot Technician: RYLIE : 1965 Requested By: EMERGENCY EMERGENCY Order Number: [id number] Reading MD: Ottoniel Conklin Measurements Intervals Egan Rate: 85 P: 54 WA: 149 QRS: 9 QRSD: 94 T: 34 QT: 367 QTc: 437 Interpretive Statements Sinus rhythm Electronically Signed On 08-07-2025 17:42:25 PST by Ottoniel Conklin Please click the below link to view image of tracing.
== END 2025-08-02 21:32 | disposition home or self-care (01) ==
LOC: ER 18:29
DX: R07.89 Other chest pain (principal); J45.909 Unspecified asthma, uncomplicated; F32.A Depression, unspecified; F41.9 Anxiety disorder, unspecified; E11.9 Type 2 diabetes mellitus without complications; Z79.899 Other long term (current) drug therapy; Z90.49 Acquired absence of other specified parts of digestive tract; Z90.89 Acquired absence of other organs
CPT/HCPCS: 36415; 71045; 80053; 83880; 84484; 85025; 93005